=== PATIENT | female | born 1945 | race Caucasian/White ===

== ENCOUNTER → 2023-08-15 12:30 | Outpatient (REF) | payer MEDICARE, SELFPAY | LOC: DHCBC MAIN 12:30 | PROVIDERS: ATTENDING PHYSICIAN Nurse Practitioner; FAMILY PHYSICIAN Internal Medicine Geriatric Medicine | DX: R06.09 Other forms of dyspnea (principal) | CPT/HCPCS: 93306 ==

== ENCOUNTER → 2023-08-26 08:55 | Outpatient (REF) | payer MEDICARE, SELFPAY ==
[2023-08-26 09:17] LABS: Hematocrit 36.4 % (37.0-47.0); Hemoglobin 12.4 g/dL (12.0-16.0); Mean Corp Hgb Conc. 34.1 g/dL (33.0-37.0); Mean Corpuscular Hgb 31.3 pg (27.0-31.0); Mean Corpuscular Volume 91.9 fL (81.0-99.0); Mean Platelet Volume 9.5 fL (7.4-10.4); Platelet Count 249 10^3/uL (130-400); Red Blood Cell Count 3.96 10^6/uL (4.20-5.40); Red Cell Dist. Width 13.2 % (11.5-14.5); White Blood Cell Count 7.6 10^3/uL (4.8-10.8)
[2023-08-26 09:52] LABS: ALT (SGPT) 50 U/L (0-35); AST (SGOT) 58 U/L (14-36); Albumin 3.6 g/dl (3.5-5.0); Alkaline Phosphatase 700 U/L (38-126); Blood Urea Nitrogen 26 mg/dl (7-17); Calcium 9.6 mg/dl (8.4-10.2); Carbon Dioxide 22 mmol/L (22-30); Chloride 107 mmol/L (98-107); Glucose 83 mg/dl (70-99); Magnesium 1.9 mg/dl (1.6-2.3); Potassium 4.5 mmol/L (3.5-5.1); Sodium 135 mmol/L (135-145); Total Bilirubin 0.6 mg/dl (0.2-1.3); Total Protein 6.3 g/dl (6.3-8.2); eGFR 35.23
== END ==
LOC: OLABWHC 08:55
PROVIDERS: ATTENDING PHYSICIAN Internal Medicine
DX: N39.0 Urinary tract infection, site not specified (principal); I63.9 Cerebral infarction, unspecified; E78.5 Hyperlipidemia, unspecified
CPT/HCPCS: 36415; 80053; 83735; 85027

== ENCOUNTER → 2023-08-29 09:57 | Outpatient (REF) | payer OTHER, MEDICARE, SELFPAY ==
[2023-08-29 10:27] LABS: Blood Urea Nitrogen 30 mg/dl (7-17); Calcium 9.3 mg/dl (8.4-10.2); Carbon Dioxide 21 mmol/L (22-30); Chloride 109 mmol/L (98-107); Glucose 95 mg/dl (70-99); Potassium 4.3 mmol/L (3.5-5.1); Sodium 136 mmol/L (135-145); eGFR 57.31
== END ==
LOC: OLABWHC 09:57
PROVIDERS: ATTENDING PHYSICIAN Internal Medicine
DX: N39.0 Urinary tract infection, site not specified (principal); G62.9 Polyneuropathy, unspecified; I63.9 Cerebral infarction, unspecified
CPT/HCPCS: 36415; 80048; 83735

== ENCOUNTER → 2023-09-14 13:16 | Outpatient (REF) | payer MEDICARE, SELFPAY | LOC: RAD 13:16 | PROVIDERS: ATTENDING PHYSICIAN Nurse Practitioner Family | DX: Z09 Encounter for follow-up examination after completed treatment for conditions other than malignant neoplasm (principal); S22.41XS Multiple fractures of ribs, right side, sequela | CPT/HCPCS: 71101 ==

== ENCOUNTER → 2023-09-23 18:25 | Outpatient (REF) | payer MEDICARE, SELFPAY | LOC: MRI 18:25 | PROVIDERS: ATTENDING PHYSICIAN Internal Medicine Transplant Hepatology; FAMILY PHYSICIAN Internal Medicine Geriatric Medicine; REFERRING PHYSICIAN Internal Medicine Gastroenterology | DX: K76.9 Liver disease, unspecified (principal) | CPT/HCPCS: 74183; A9575 ==

== ENCOUNTER → 2023-10-05 15:59 | Outpatient (REF) | payer MEDICARE, SELFPAY | LOC: RAD 15:59 | PROVIDERS: ATTENDING PHYSICIAN Nurse Practitioner Family; FAMILY PHYSICIAN Internal Medicine Geriatric Medicine | DX: Q75.9 Congenital malformation of skull and face bones, unspecified (principal) | CPT/HCPCS: 70260 ==

== ENCOUNTER → 2023-10-19 12:26 | Outpatient (REF) | payer MEDICARE, SELFPAY | LOC: DHVS 12:26 | PROVIDERS: ATTENDING PHYSICIAN Surgery Vascular Surgery | DX: I74.8 Embolism and thrombosis of other arteries (principal); I73.9 Peripheral vascular disease, unspecified | CPT/HCPCS: 93922 ==

== ENCOUNTER → 2023-11-03 11:43 | Outpatient (REF) | payer MEDICARE, SELFPAY ==
[2023-11-03 13:05] LABS: INR 0.97; PT 12.8 Sec (11.4-14.6)
[2023-11-03 13:06] LABS: APTT 28.2 Sec (23.4-35.0)
[2023-11-03 13:10] LABS: % Basophils 0.6 % (0-2); % Eosinophils 8.7 % (0-6); % Immature Granulocytes 0.3 % (0-0.5); % Lymphocytes 29.6 % (20.5-51.1); % Monocytes 6.9 % (1.7-9.3); % Neutrophils 53.9 % (42.2-75.2); Absolute Eosinophils 0.6 10^3/uL (0-0.7); Absolute Lymphocytes 1.9 10^3/uL (1.2-3.4); Absolute Monocytes 0.5 10^3/uL (0.1-0.6); Absolute Neutrophils 3.5 10^3/uL (1.4-6.5); Hemoglobin 12.3 g/dL (12.0-16.0); Mean Corp Hgb Conc. 33.2 g/dL (33.0-37.0); Mean Corpuscular Hgb 30.7 pg (27.0-31.0); Mean Corpuscular Volume 92.3 fL (81.0-99.0); Mean Platelet Volume 8.6 fL (7.4-10.4); Nucleated Red Blood Cells % 0 %; Platelet Count 191 10^3/uL (130-400); Red Blood Cell Count 4.01 10^6/uL (4.20-5.40); Red Cell Dist. Width 12.3 % (11.5-14.5); White Blood Cell Count 6.5 10^3/uL (4.8-10.8)
[2023-11-03 14:03] LABS: ALT (SGPT) 20 U/L (0-35); AST (SGOT) 35 U/L (14-36); Albumin 3.8 g/dl (3.5-5.0); Alkaline Phosphatase 174 U/L (38-126); Blood Urea Nitrogen 23 mg/dl (7-17); Calcium 9.4 mg/dl (8.4-10.2); Carbon Dioxide 24 mmol/L (22-30); Chloride 108 mmol/L (98-107); Glucose 86 mg/dl (70-99); Potassium 4.4 mmol/L (3.5-5.1); Sodium 139 mmol/L (135-145); Total Bilirubin 0.6 mg/dl (0.2-1.3); Total Protein 6.3 g/dl (6.3-8.2); Urine Albumin Negative (Neg - Trace); Urine Bilirubin Negative (Negative); Urine Character Clear (Clear); Urine Color Yellow; Urine Glucose Negative (Negative); Urine Ketone Negative (Negative); Urine Leukocyte Trace (Negative); Urine Nitrite Negative (Negative); Urine Occult Blood Trace (Negative); Urine Urobilinogen Negative (Neg - 1+); eGFR 56.95
[2023-11-03 14:05] LABS: C-Reactive Protein < 5.00 mg/L (0.0-10.00)
[2023-11-03 14:13] LABS: Urine Squamous Cell 0-2 /LPF (Few)
[2023-11-03 14:14] LABS: Urine Red Blood Cell 0-2 /HPF (0-2); Urine White Cell 0-2 /HPF (0-5)
[2023-11-05 20:55] LABS: ANA, IgG Reflex to HEp-2 Detected (None Detected)
[2023-11-06 02:14] LABS: Beta-2-Glycoprotein I Ab. IgG <10 SGU (<=20); Beta-2-Glycoprotein I Ab. IgM <10 SMU (<=20)
[2023-11-06 06:27] LABS: Myeloperoxidase Antibody 0 AU/mL (0-19); Serine Protease-3, IgG 0 AU/mL (0-19)
[2023-11-06 15:07] LABS: SSA 52 (Ro)(ENA) Ab, IgG 2 AU/mL (0-40); SSA 60 (Ro)(ENA) Ab, IgG 0 AU/mL (0-40); SSB (La)(ENA) Ab, IgG 1 AU/mL (0-40)
[2023-11-07 09:17] LABS: ANA, HEp-2, IgG Detected (<1:80)
[2023-11-07 19:30] LABS: Cardiolipin IgA Antibody <10 APL (<=11); Cardiolipin IgM Antibody <10 MPL (<=12); Cardiolipin Igg Antibody <10 GPL (<=14)
[2023-11-07 21:38] LABS: Albumin 3.77 g/dL (3.75-5.01); Alpha 1 Globulin 0.31 g/dL (0.19-0.46); SPEP IFE Reflex Not Done; Total Protein-Electrophoresis 6.5 g/dL (6.3-8.2)
[2023-11-09 07:33] LABS: ANA Pattern Homogeneous
== END ==
LOC: REG 11:43
PROVIDERS: ATTENDING PHYSICIAN Internal Medicine Rheumatology; FAMILY PHYSICIAN Internal Medicine Geriatric Medicine
DX: D68.59 Other primary thrombophilia (principal); I73.00 Raynaud's syndrome without gangrene; I77.6 Arteritis, unspecified; M19.041 Primary osteoarthritis, right hand; M35.9 Systemic involvement of connective tissue, unspecified; Z51.81 Encounter for therapeutic drug level monitoring
CPT/HCPCS: 36415; 80053; 81003; 81015; 83516; 84155; 84165; 85025; 85610; 85730; 86038; 86039; 86140; 86146; 86147; 86235

== ENCOUNTER → 2023-11-29 14:03 | Outpatient (REF) | payer MEDICARE, SELFPAY ==
[2023-11-29 15:17] LABS: % Basophils 0.9 % (0-2); % Eosinophils 8.3 % (0-6); % Immature Granulocytes 0.1 % (0-0.5); % Lymphocytes 30.1 % (20.5-51.1); % Monocytes 6.7 % (1.7-9.3); % Neutrophils 53.9 % (42.2-75.2); Absolute Basophils 0.1 10^3/uL (0-0.2); Absolute Eosinophils 0.6 10^3/uL (0-0.7); Absolute Lymphocytes 2.2 10^3/uL (1.2-3.4); Absolute Monocytes 0.5 10^3/uL (0.1-0.6); Hematocrit 40.1 % (37.0-47.0); Hemoglobin 13.3 g/dL (12.0-16.0); Mean Corp Hgb Conc. 33.2 g/dL (33.0-37.0); Mean Corpuscular Hgb 30.7 pg (27.0-31.0); Mean Corpuscular Volume 92.6 fL (81.0-99.0); Mean Platelet Volume 9.3 fL (7.4-10.4); Nucleated Red Blood Cells % 0 %; Platelet Count 179 10^3/uL (130-400); Red Blood Cell Count 4.33 10^6/uL (4.20-5.40); White Blood Cell Count 7.4 10^3/uL (4.8-10.8)
[2023-11-29 15:38] LABS: ALT (SGPT) 18 U/L (0-35); AST (SGOT) 31 U/L (14-36); Albumin 4.1 g/dl (3.5-5.0); Alkaline Phosphatase 162 U/L (38-126); Blood Urea Nitrogen 26 mg/dl (7-17); Calcium 10.3 mg/dl (8.4-10.2); Carbon Dioxide 24 mmol/L (22-30); Chloride 104 mmol/L (98-107); Glucose 92 mg/dl (70-99); HDL Cholesterol 63 mg/dl; LDL Cholesterol, Calculated 97 mg/dl; Potassium 4.1 mmol/L (3.5-5.1); Sodium 137 mmol/L (135-145); Total Bilirubin 0.6 mg/dl (0.2-1.3); Total Cholesterol 182 mg/dl (50-199); Total Protein 6.7 g/dl (6.3-8.2); Triglyceride 114 mg/dl (10-149); Very Low Density Lipoprotein 22 mg/dl (0-30); eGFR 41.57
== END ==
LOC: REG 14:03
PROVIDERS: ATTENDING PHYSICIAN Internal Medicine Geriatric Medicine
DX: I10 Essential (primary) hypertension (principal); E78.2 Mixed hyperlipidemia; I95.1 Orthostatic hypotension; I06.8 Other rheumatic aortic valve diseases; M41.9 Scoliosis, unspecified; Z91.81 History of falling; G62.9 Polyneuropathy, unspecified; R26.89 Other abnormalities of gait and mobility; E55.9 Vitamin D deficiency, unspecified; Z13.31 Encounter for screening for depression
CPT/HCPCS: 36415; 80053; 80061; 85025

== ENCOUNTER → 2023-12-01 09:22 | Outpatient (REF) | payer MEDICARE, SELFPAY ==
[2023-12-01 12:32] LABS: Complement C3 113 mg/dl (88-165)
[2023-12-01 12:47] LABS: Protein/creatinine Ratio 0.2; Urine Protein 9 mg/dl
[2023-12-02 17:20] LABS: ds-DNA Ab, IgG Reflex To Titer 8 IU (0-24)
[2023-12-02 23:58] LABS: Anti-Xa Qualitative Interp Not Performed (Not Present); Anticoagulant Med Neutralizati Not Performed (Not Performed); Hexagonal Phospholipid Confirm Not Performed s (<=7.9); Neutralized PTT-LA Ratio Not Performed (<=1.20); Neutralized dRVTT Screen Ratio Not Performed (<=1.20); PTT-LA Ratio 0.91 (<=1.20); Prothrombin Time 12.3 s (12.0-15.5); Thrombin Time Not Performed s (<=19.5); dRVTT 1.1 Mix Ratio Not Performed (<=1.20); dRVTT Confirmation Ratio Not Performed (<=1.20)
[2023-12-03 08:24] LABS: Centromere Antibody 0 AU/mL (0-40); Scleroderma Antibody (Scl-70) 1 AU/mL (0-40)
[2023-12-03 19:43] LABS: Smith/RNP (ENA), IgG 4 Units (0-19)
== END ==
LOC: RAD 09:22
PROVIDERS: ATTENDING PHYSICIAN Internal Medicine Rheumatology; FAMILY PHYSICIAN Internal Medicine Geriatric Medicine
DX: R06.02 Shortness of breath (principal); D68.59 Other primary thrombophilia; G62.9 Polyneuropathy, unspecified; I73.00 Raynaud's syndrome without gangrene; I77.6 Arteritis, unspecified; M35.9 Systemic involvement of connective tissue, unspecified; R21 Rash and other nonspecific skin eruption; Z51.81 Encounter for therapeutic drug level monitoring
CPT/HCPCS: 36415; 71046; 82570; 83516; 84156; 85610; 85613; 85730; 86160; 86225; 86235

== ENCOUNTER → 2024-02-02 11:34 | Outpatient (REF) | payer MEDICARE, SELFPAY ==
[2024-02-02 12:25] LABS: % Basophils 0.7 % (0-2); % Eosinophils 7.7 % (0-6); % Immature Granulocytes 0.1 % (0-0.5); % Lymphocytes 27.4 % (20.5-51.1); % Monocytes 6.4 % (1.7-9.3); % Neutrophils 57.7 % (42.2-75.2); Absolute Basophils 0.1 10^3/uL (0-0.2); Absolute Eosinophils 0.6 10^3/uL (0-0.7); Absolute Lymphocytes 2.1 10^3/uL (1.2-3.4); Absolute Monocytes 0.5 10^3/uL (0.1-0.6); Absolute Neutrophils 4.4 10^3/uL (1.4-6.5); Hematocrit 39.4 % (37.0-47.0); Hemoglobin 13.3 g/dL (12.0-16.0); Mean Corp Hgb Conc. 33.8 g/dL (33.0-37.0); Mean Corpuscular Hgb 30.4 pg (27.0-31.0); Mean Corpuscular Volume 90.2 fL (81.0-99.0); Nucleated Red Blood Cells % 0 %; Platelet Count 188 10^3/uL (130-400); Red Blood Cell Count 4.37 10^6/uL (4.20-5.40); Red Cell Dist. Width 12.7 % (11.5-14.5); White Blood Cell Count 7.7 10^3/uL (4.8-10.8)
[2024-02-02 13:01] LABS: ALT (SGPT) 27 U/L (0-35); AST (SGOT) 34 U/L (14-36); Alkaline Phosphatase 220 U/L (38-126); Blood Urea Nitrogen 24 mg/dl (7-17); Calcium 9.8 mg/dl (8.4-10.2); Carbon Dioxide 25 mmol/L (22-30); Chloride 108 mmol/L (98-107); Glucose 88 mg/dl (70-99); HDL Cholesterol 56 mg/dl; LDL Cholesterol, Calculated 112 mg/dl; Potassium 4.4 mmol/L (3.5-5.1); Sodium 140 mmol/L (135-145); Total Bilirubin 0.6 mg/dl (0.2-1.3); Total Cholesterol 187 mg/dl (50-199); Total Protein 6.6 g/dl (6.3-8.2); Triglyceride 95 mg/dl (10-149); Very Low Density Lipoprotein 19 mg/dl (0-30)
== END ==
LOC: REG 11:34
PROVIDERS: ATTENDING PHYSICIAN Internal Medicine Geriatric Medicine
DX: Z91.81 History of falling (principal); I10 Essential (primary) hypertension; E78.2 Mixed hyperlipidemia; I95.1 Orthostatic hypotension; I06.8 Other rheumatic aortic valve diseases; M41.9 Scoliosis, unspecified; G62.9 Polyneuropathy, unspecified; R26.89 Other abnormalities of gait and mobility; Z99.89 Dependence on other enabling machines and devices; E55.9 Vitamin D deficiency, unspecified; E03.9 Hypothyroidism, unspecified; Z13.31 Encounter for screening for depression; K21.9 Gastro-esophageal reflux disease without esophagitis; I73.9 Peripheral vascular disease, unspecified; H25.11 Age-related nuclear cataract, right eye
CPT/HCPCS: 36415; 80053; 80061; 85025

== ENCOUNTER → 2024-02-07 10:03 | Outpatient (REF) | payer MEDICARE, SELFPAY ==
[2024-02-07 12:00] LABS: Alkaline Phosphatase 172 U/L (38-126)
== END ==
LOC: REG 10:03
PROVIDERS: ATTENDING PHYSICIAN Internal Medicine Geriatric Medicine; OTHER PHYSICIAN Internal Medicine Gastroenterology; REFERRING PHYSICIAN Internal Medicine Transplant Hepatology
DX: R74.8 Abnormal levels of other serum enzymes (principal)
CPT/HCPCS: 36415; 84075

== ENCOUNTER → 2024-02-09 13:21 | Outpatient (REF) | payer MEDICARE, SELFPAY ==
[2024-02-09 16:52] LABS: Alkaline Phosphatase, Total 174 U/L (38-126)
[2024-02-09 20:08] LABS: Alk Phos After Heat 169; Alkaline Phosphatase Percent 97.13
== END ==
LOC: REG 13:21
PROVIDERS: ATTENDING PHYSICIAN Internal Medicine Geriatric Medicine; FAMILY PHYSICIAN Internal Medicine Transplant Hepatology; OTHER PHYSICIAN Internal Medicine Rheumatology; REFERRING PHYSICIAN Internal Medicine Gastroenterology
DX: R74.8 Abnormal levels of other serum enzymes (principal)
CPT/HCPCS: 36415; 84078

== ENCOUNTER → 2024-02-21 13:16 | Outpatient (REF) | payer MEDICARE, SELFPAY ==
[2024-02-21 14:42] LABS: Urine Albumin Negative (Neg - Trace); Urine Bilirubin Negative (Negative); Urine Character Clear (Clear); Urine Color Yellow; Urine Glucose Negative (Negative); Urine Ketone Negative (Negative); Urine Leukocyte Trace (Negative); Urine Nitrite Negative (Negative); Urine Occult Blood Negative (Negative); Urine Specific Gravity 1.005 (<1.030); Urine Urobilinogen Negative (Neg - 1+)
[2024-02-21 15:11] LABS: Urine Bacteria Few (Negative); Urine Red Blood Cell 0-2 /HPF (0-2); Urine Urothelial Cell 0-2 /LPF (FEW); Urine White Cell 0-2 /HPF (0-5)
== END ==
LOC: REG 13:16
PROVIDERS: ATTENDING PHYSICIAN Nurse Practitioner Family; FAMILY PHYSICIAN Internal Medicine Geriatric Medicine
DX: R39.9 Unspecified symptoms and signs involving the genitourinary system (principal)
CPT/HCPCS: 81003; 81015; 87086

== ENCOUNTER → 2024-03-05 09:03 | Outpatient (REF) | payer MEDICARE, SELFPAY | LOC: RAD 09:03 | PROVIDERS: ATTENDING PHYSICIAN Internal Medicine Geriatric Medicine | DX: R74.8 Abnormal levels of other serum enzymes (principal) | CPT/HCPCS: 78306; A9503 ==

== ENCOUNTER → 2024-04-05 06:22 | Day surgery (SDC) | payer MEDICARE, SELFPAY | LOC: GI 06:22 | PROVIDERS: ATTENDING PHYSICIAN Internal Medicine Gastroenterology | DX: D12.0 Benign neoplasm of cecum (principal); D12.2 Benign neoplasm of ascending colon; K57.30 Diverticulosis of large intestine without perforation or abscess without bleeding; K62.1 Rectal polyp; K64.8 Other hemorrhoids; Z86.010 Personal history of colon polyps | CPT/HCPCS: 45385; 45380; 88305 ==

== ENCOUNTER → 2024-04-10 12:09 | Outpatient (REF) | payer MEDICARE, SELFPAY ==
[2024-04-10 14:07] LABS: Urine Albumin Negative (Neg - Trace); Urine Bilirubin Negative (Negative); Urine Character Clear (Clear); Urine Color Yellow; Urine Glucose Negative (Negative); Urine Ketone Negative (Negative); Urine Leukocyte Trace (Negative); Urine Nitrite Negative (Negative); Urine Occult Blood Negative (Negative); Urine Urobilinogen Negative (Neg - 1+)
[2024-04-10 14:29] LABS: Urine Urothelial Cell 0-2 /LPF (FEW)
[2024-04-10 14:30] LABS: Urine Red Blood Cell 0-2 /HPF (0-2); Urine White Cell 0-2 /HPF (0-5)
== END ==
LOC: REG 12:09
PROVIDERS: ATTENDING PHYSICIAN Nurse Practitioner Family; FAMILY PHYSICIAN Internal Medicine Geriatric Medicine
DX: R35.0 Frequency of micturition (principal)
CPT/HCPCS: 36415; 81003; 81015

== ENCOUNTER → 2024-05-18 11:52 | Outpatient (REF) | payer MEDICARE, SELFPAY ==
[2024-05-18 14:05] LABS: C-Reactive Protein < 5.00 mg/L (0.0-10.00)
[2024-05-18 14:21] LABS: Vitamin D, 25-OH*** 74.7 ng/mL (30-80)
== END ==
LOC: REG 11:52
PROVIDERS: ATTENDING PHYSICIAN Internal Medicine Rheumatology; FAMILY PHYSICIAN Internal Medicine Geriatric Medicine
DX: E55.9 Vitamin D deficiency, unspecified (principal); G62.9 Polyneuropathy, unspecified; I73.00 Raynaud's syndrome without gangrene; M35.9 Systemic involvement of connective tissue, unspecified; Z51.81 Encounter for therapeutic drug level monitoring
CPT/HCPCS: 36415; 82306; 83516; 86038; 86140; 86146; 86147; 86235

== ENCOUNTER → 2024-05-23 16:49 | Outpatient (REF) | payer MEDICARE, SELFPAY ==
[2024-05-23 17:30] LABS: % Basophils 0.5 % (0-2); % Eosinophils 5.4 % (0-6); % Immature Granulocytes 0.3 % (0-0.5); % Lymphocytes 26.4 % (20.5-51.1); % Monocytes 5.2 % (1.7-9.3); % Neutrophils 62.2 % (42.2-75.2); Absolute Eosinophils 0.4 10^3/uL (0-0.7); Absolute Lymphocytes 2.1 10^3/uL (1.2-3.4); Absolute Monocytes 0.4 10^3/uL (0.1-0.6); Absolute Neutrophils 4.9 10^3/uL (1.4-6.5); Hematocrit 41.7 % (37.0-47.0); Hemoglobin 14.1 g/dL (12.0-16.0); Mean Corp Hgb Conc. 33.8 g/dL (33.0-37.0); Mean Corpuscular Hgb 30.4 pg (27.0-31.0); Mean Corpuscular Volume 89.9 fL (81.0-99.0); Mean Platelet Volume 8.7 fL (7.4-10.4); Nucleated Red Blood Cells % 0 %; Platelet Count 162 10^3/uL (130-400); Red Blood Cell Count 4.64 10^6/uL (4.20-5.40); Red Cell Dist. Width 12.9 % (11.5-14.5); White Blood Cell Count 7.9 10^3/uL (4.8-10.8)
[2024-05-23 17:40] LABS: ALT (SGPT) 20 U/L (0-35); AST (SGOT) 40 U/L (14-36); Albumin 4.8 g/dl (3.5-5.0); Alkaline Phosphatase 160 U/L (38-126); Blood Urea Nitrogen 24 mg/dl (7-17); Calcium 11.2 mg/dl (8.4-10.2); Carbon Dioxide 27 mmol/L (22-30); Chloride 104 mmol/L (98-107); Glucose 88 mg/dl (70-99); HDL Cholesterol 66 mg/dl; LDL Cholesterol, Calculated 87 mg/dl; Potassium 5.3 mmol/L (3.5-5.1); Sodium 143 mmol/L (135-145); Total Bilirubin 0.8 mg/dl (0.2-1.3); Total Cholesterol 183 mg/dl (50-199); Total Protein 7.5 g/dl (6.3-8.2); Triglyceride 152 mg/dl (10-149); Very Low Density Lipoprotein 30 mg/dl (0-30)
[2024-05-25 11:52] LABS: Thyroglobulin Antibodies <0.9 IU/mL (0.0-4.0); Thyroid Peroxidase Ab (TPO) <0.3 IU/mL (0.0-9.0)
== END ==
LOC: REG 16:49
PROVIDERS: ATTENDING PHYSICIAN Internal Medicine Geriatric Medicine; REFERRING PHYSICIAN Internal Medicine Endocrinology, Diabetes & Metabolism
DX: I10 Essential (primary) hypertension (principal); E78.2 Mixed hyperlipidemia; I95.1 Orthostatic hypotension; I06.8 Other rheumatic aortic valve diseases; G62.9 Polyneuropathy, unspecified; I44.7 Left bundle-branch block, unspecified; E21.0 Primary hyperparathyroidism; M41.9 Scoliosis, unspecified; Z91.81 History of falling; E03.9 Hypothyroidism, unspecified; R26.89 Other abnormalities of gait and mobility; Z13.31 Encounter for screening for depression; I73.9 Peripheral vascular disease, unspecified; G60.9 Hereditary and idiopathic neuropathy, unspecified; R94.5 Abnormal results of liver function studies; R68.89 Other general symptoms and signs
CPT/HCPCS: 36415; 80053; 80061; 84439; 84443; 85025; 86376; 86800

== ENCOUNTER → 2024-06-26 12:48 | Outpatient (REF) | payer MEDICARE, SELFPAY ==
[2024-06-26 15:32] LABS: ALT (SGPT) 24 U/L (0-35); AST (SGOT) 36 U/L (14-36); Albumin 4.2 g/dl (3.5-5.0); Alkaline Phosphatase 165 U/L (38-126); Blood Urea Nitrogen 23 mg/dl (7-17); Carbon Dioxide 23 mmol/L (22-30); Chloride 105 mmol/L (98-107); Glucose 83 mg/dl (70-99); Potassium 4.7 mmol/L (3.5-5.1); Sodium 140 mmol/L (135-145); Total Bilirubin 0.5 mg/dl (0.2-1.3); Total Protein 6.7 g/dl (6.3-8.2); eGFR 45.76
[2024-06-26 15:44] LABS: Vitamin D, 25-OH*** 71.1 ng/mL (30-80)
[2024-06-26 15:58] LABS: TSH 1.28 uIU/ml (0.47-4.68)
[2024-06-27 09:07] LABS: Intact PTH 25.9 pg/ml (13.6-85.8)
== END ==
LOC: WDC 12:48
PROVIDERS: ATTENDING PHYSICIAN Internal Medicine Geriatric Medicine; OTHER PHYSICIAN Internal Medicine Endocrinology, Diabetes & Metabolism
DX: E89.0 Postprocedural hypothyroidism (principal); E83.52 Hypercalcemia; E55.9 Vitamin D deficiency, unspecified; Z12.31 Encounter for screening mammogram for malignant neoplasm of breast
CPT/HCPCS: 36415; 77063; 77067; 80053; 82306; 82330; 83970; 84443

== ENCOUNTER → 2024-08-02 07:50 | Outpatient (REF) | payer MEDICARE, SELFPAY | LOC: RSP 07:50 | PROVIDERS: ATTENDING PHYSICIAN Internal Medicine; FAMILY PHYSICIAN Internal Medicine Geriatric Medicine | DX: R06.02 Shortness of breath (principal) | CPT/HCPCS: 94727; 94729; 88738; 94060 ==

== ENCOUNTER → 2024-08-13 14:37 | Outpatient (REF) | payer MEDICARE, SELFPAY | LOC: HWRCS 14:37 | PROVIDERS: ATTENDING PHYSICIAN Internal Medicine; FAMILY PHYSICIAN Internal Medicine Geriatric Medicine | DX: R06.02 Shortness of breath (principal) | CPT/HCPCS: 93306 ==

== ENCOUNTER → 2024-08-21 10:29 | Outpatient (REF) | payer MEDICARE, SELFPAY | LOC: MRI 3T 10:29 | PROVIDERS: ATTENDING PHYSICIAN Internal Medicine Gastroenterology; FAMILY PHYSICIAN Internal Medicine Geriatric Medicine | DX: K86.2 Cyst of pancreas (principal) | CPT/HCPCS: 74183; A9575 ==

== ENCOUNTER → 2024-09-05 13:30 | Outpatient (REF) | payer MEDICARE, SELFPAY ==
[2024-09-05 14:55] LABS: % Basophils 0.5 % (0-2); % Immature Granulocytes 0.3 % (0-0.5); % Lymphocytes 25.5 % (20.5-51.1); % Neutrophils 58.7 % (42.2-75.2); Absolute Eosinophils 0.5 10^3/uL (0-0.7); Absolute Lymphocytes 1.9 10^3/uL (1.2-3.4); Absolute Monocytes 0.6 10^3/uL (0.1-0.6); Absolute Neutrophils 4.3 10^3/uL (1.4-6.5); Hematocrit 37.9 % (37.0-47.0); Hemoglobin 12.4 g/dL (12.0-16.0); Mean Corp Hgb Conc. 32.7 g/dL (33.0-37.0); Mean Corpuscular Hgb 31.1 pg (27.0-31.0); Nucleated Red Blood Cells % 0 %; Platelet Count 200 10^3/uL (130-400); Red Blood Cell Count 3.99 10^6/uL (4.20-5.40); Red Cell Dist. Width 12.5 % (11.5-14.5); White Blood Cell Count 7.3 10^3/uL (4.8-10.8)
[2024-09-05 15:00] LABS: Urine Albumin 2+ (Neg - Trace); Urine Bilirubin Negative (Negative); Urine Character Clear (Clear); Urine Color Yellow; Urine Glucose Negative (Negative); Urine Ketone Negative (Negative); Urine Leukocyte 2+ (Negative); Urine Nitrite Negative (Negative); Urine Occult Blood Negative (Negative); Urine Urobilinogen Negative (Neg - 1+)
[2024-09-05 15:15] LABS: Urine Red Blood Cell 0-2 /HPF (0-2); Urine Squamous Cell 26-30 /LPF (Few)
[2024-09-05 15:16] LABS: Urine Bacteria Few (Negative)
[2024-09-05 15:46] LABS: ALT (SGPT) 19 U/L (0-35); AST (SGOT) 28 U/L (14-36); Albumin 4.4 g/dl (3.5-5.0); Alkaline Phosphatase 151 U/L (38-126); Blood Urea Nitrogen 23 mg/dl (7-17); Calcium 10.4 mg/dl (8.4-10.2); Carbon Dioxide 24 mmol/L (22-30); Chloride 104 mmol/L (98-107); Glucose 87 mg/dl (70-99); Potassium 4.5 mmol/L (3.5-5.1); Sodium 139 mmol/L (135-145); Total Bilirubin 0.9 mg/dl (0.2-1.3); Total Protein 6.7 g/dl (6.3-8.2); eGFR 50.48
[2024-09-05 16:03] LABS: Vitamin D, 25-OH*** 88.3 ng/mL (30-80)
== END ==
LOC: CLINIC 13:30
PROVIDERS: ATTENDING PHYSICIAN Internal Medicine Geriatric Medicine
DX: I10 Essential (primary) hypertension (principal); E78.2 Mixed hyperlipidemia; I95.1 Orthostatic hypotension; I06.8 Other rheumatic aortic valve diseases; G62.9 Polyneuropathy, unspecified; I44.7 Left bundle-branch block, unspecified; E21.0 Primary hyperparathyroidism; M41.9 Scoliosis, unspecified; Z91.81 History of falling; E03.9 Hypothyroidism, unspecified; R26.89 Other abnormalities of gait and mobility; Z13.31 Encounter for screening for depression; I73.9 Peripheral vascular disease, unspecified; G60.9 Hereditary and idiopathic neuropathy, unspecified; R94.5 Abnormal results of liver function studies
CPT/HCPCS: 36415; 80053; 81003; 81015; 82306; 85025

== ENCOUNTER → 2024-09-06 10:25 | Outpatient (REF) | payer MEDICARE, SELFPAY ==
[2024-09-06 12:13] LABS: ALT (SGPT) 18 U/L (0-35); AST (SGOT) 25 U/L (14-36); Albumin 3.8 g/dl (3.5-5.0); Alkaline Phosphatase 148 U/L (38-126); Direct Bilirubin 0.1 mg/dl (0.0-0.4); HDL Cholesterol 55 mg/dl; LDL Cholesterol, Calculated 82 mg/dl; Total Bilirubin 0.6 mg/dl (0.2-1.3); Total Cholesterol 155 mg/dl (50-199); Total Protein 6.3 g/dl (6.3-8.2); Triglyceride 94 mg/dl (10-149); Very Low Density Lipoprotein 18 mg/dl (0-30)
== END ==
LOC: REG 10:25
PROVIDERS: ATTENDING PHYSICIAN Internal Medicine Gastroenterology; FAMILY PHYSICIAN Internal Medicine Geriatric Medicine; REFERRING PHYSICIAN Internal Medicine Transplant Hepatology
DX: I10 Essential (primary) hypertension (principal); E78.2 Mixed hyperlipidemia; I95.1 Orthostatic hypotension; I06.8 Other rheumatic aortic valve diseases; G62.9 Polyneuropathy, unspecified; I44.7 Left bundle-branch block, unspecified; E21.0 Primary hyperparathyroidism; M41.9 Scoliosis, unspecified; Z91.81 History of falling; E03.9 Hypothyroidism, unspecified; R26.89 Other abnormalities of gait and mobility; Z13.31 Encounter for screening for depression; I73.9 Peripheral vascular disease, unspecified; G60.9 Hereditary and idiopathic neuropathy, unspecified; R94.5 Abnormal results of liver function studies; D12.5 Benign neoplasm of sigmoid colon
CPT/HCPCS: 36415; 80061; 80076

== ENCOUNTER → 2024-09-17 13:54 | Outpatient (REF) | payer MEDICARE, SELFPAY ==
[2024-09-17 15:24] LABS: Vitamin D, 25-OH*** 81.8 ng/mL (30-80)
== END ==
LOC: REG 13:54
PROVIDERS: ATTENDING PHYSICIAN Internal Medicine Geriatric Medicine; OTHER PHYSICIAN Internal Medicine Endocrinology, Diabetes & Metabolism
DX: E67.3 Hypervitaminosis D (principal)
CPT/HCPCS: 36415; 82306

== ENCOUNTER → 2024-10-31 09:21 | Outpatient (REF) | payer MEDICARE, SELFPAY ==
[2024-10-31 11:48] LABS: Vitamin D, 25-OH*** 89.5 ng/mL (30-80)
== END ==
LOC: RAD 09:21
PROVIDERS: ATTENDING PHYSICIAN Surgery Vascular Surgery; FAMILY PHYSICIAN Internal Medicine Geriatric Medicine; OTHER PHYSICIAN Internal Medicine Gastroenterology; OTHER PHYSICIAN Internal Medicine Transplant Hepatology; REFERRING PHYSICIAN Internal Medicine Endocrinology, Diabetes & Metabolism
DX: I73.9 Peripheral vascular disease, unspecified (principal); E67.3 Hypervitaminosis D
CPT/HCPCS: 36415; 82306; 93922; 93925

== ENCOUNTER → 2025-01-09 10:49 | Outpatient (REF) | payer MEDICARE, SELFPAY ==
[2025-01-09 12:29] LABS: GGTP 35 U/L (12-43)
[2025-01-09 13:13] LABS: TSH < 0.02 uIU/ml (0.47-4.68)
== END ==
LOC: REG 10:49
PROVIDERS: ATTENDING PHYSICIAN Internal Medicine Gastroenterology; FAMILY PHYSICIAN Internal Medicine Geriatric Medicine; OTHER PHYSICIAN Internal Medicine; OTHER PHYSICIAN Internal Medicine Endocrinology, Diabetes & Metabolism; REFERRING PHYSICIAN Internal Medicine Transplant Hepatology
DX: R94.5 Abnormal results of liver function studies (principal); R79.89 Other specified abnormal findings of blood chemistry; R74.01 Elevation of levels of liver transaminase levels; E89.0 Postprocedural hypothyroidism
CPT/HCPCS: 36415; 82248; 82977; 84443

== ENCOUNTER 2025-01-23 06:47 | Inpatient (IN) | payer MEDICARE, SELFPAY ==
--- NOTE | 2024-12-19 11:06 | CM ---
Addendum entered by Sienna Shepard RN 01/22/25 15:49:
CM spoke with patient who requested surgical time. CM advised patient that she will receive a text after 12pm today with arrival time.
CM was updated by Buck at [facility] that they are unable to assist patient to MANAGER PHP through her insurance. Patient stated that she understood and she has a friend Blanca who will be available to assist her.
Addendum entered by Sienna Shepard RN 01/22/25 11:31:
CM spoke with Renetta from [facility] and she advised that they are unable to assist with MANAGER PHP staffing. CM spoke with [facility]. Kina is running patient's insurance for possible staffing and MANAGER PHP assistance.
Addendum entered by Sienna Shepard RN 01/10/25 15:39:
CM requested update on insurance authorization for MANAGER PHP from Renetta at [facility]. Awaiting return call.
CM left message for patient to update.
Addendum entered by Sienna Shepard RN 01/09/25 15:41:
CM spoke with patient who stated that her [employer] will pay for up to 28 hours of MANAGER PHP care. CM spoke with [facility] and they stated that they would provide up to 8 hours of care/day up to 35 hours. HOSSEIN spoke with Renetta
at [facility] who advised CM call [facility] Private Duty Office [phone]. CM spoke with Private Duty and they stated that [facility] does not cover MANAGER PHP services.
HOSSEIN spoke with Renetta who requested that patient's face sheet and insurance be faxed to her. The private duty office will submit through patient's insurance to check for coverage. CM will await call back.
Original Note:
Cm reviewed medical records. Patient lives independently in a single floor apartment. Patient has had a history of VN with [facility]. Patient has been to [facility]. Patient has a cane, rollator, walker and raised toilet set. Patient is active with her PCP.
Patient will plan for outpatient PT on 01/25 if she does not get home care.
Patient would prefer [facility], but is requesting [facility] for two week post operatively because she does not have reliable transportation. SHe does have friends available to provide transportation to surgery and post operatively.
PLAN: Home with [facility], or outpatient PT
--- NOTE | 2025-01-04 13:18 | W.PN.UPDATE ---
Update Note
Progress Note Update
At the request of the patient, she was provided with a paper script for nasal Mupirocin pre-operatively.
[2025-01-04 14:21] VITALS: BMI 24.5
[2025-01-04 14:38] LABS: Hematocrit 37.4 % (37.0-47.0); Hemoglobin 12.9 g/dL (12.0-16.0); Mean Corp Hgb Conc. 34.5 g/dL (33.0-37.0); Mean Corpuscular Volume 89.7 fL (81.0-99.0); Platelet Count 190 10^3/uL (130-400); Red Cell Dist. Width 12.3 % (11.5-14.5)
[2025-01-04 15:27] LABS: ALT (SGPT) 22 U/L (0-35); AST (SGOT) 33 U/L (14-36); Albumin 4.0 g/dl (3.5-5.0); Alkaline Phosphatase 140 U/L (38-126); Blood Urea Nitrogen 25 mg/dl (7-17); Calcium 9.5 mg/dl (8.4-10.2); Carbon Dioxide 21 mmol/L (22-30); Chloride 112 mmol/L (98-107); Estimated Creatinine Clearance 28 ml/min; Glucose 79 mg/dl (70-99); Potassium 4.8 mmol/L (3.5-5.1); Sodium 139 mmol/L (135-145); Total Protein 6.3 g/dl (6.3-8.2); eGFR 41.31
[2025-01-04 16:05] VITALS: BMI 24.5
[2025-01-05 08:14] LABS: Glycohemoglobin (HgbA1c) 5.2 % (4.0-5.6)
[2025-01-16 03:00] VITALS: BP 118/65
[2025-01-23] VITALS (19 sets, daily range): BP systolic 93–188; BP diastolic 30–110; PULSE 84–100; O2SAT 97
[2025-01-23] MEDS: TYLENOL 650 MG PO ×4 (07:30→20:45)
[2025-01-23] MEDS: NORMOSOL-R/PLASMALYTE-A 1000 IV ×2 (07:53→14:07)
--- NOTE | 2025-01-23 10:47 | W.PN.ORTHO ---
Today's Communication / Plan
-
d/c when stable
Assessment
.
Dressing:
Clean, dry and intact.
Assessment:
Dysphagia-aspiration precautions-applesauce w/ pills
Hx CVA/ambulatory dysfunction-fall precautions
Chronic constipation-+ MOM to bowel regimen at home
Plan
.
Surgery / Date: R SHAYLA Carias 01/23/25
DVT Prophylaxis: Aspirin
Activity:
Out of bed.
PT/OT
Discharge Plan: Home w/ VN
Vital Signs and Labs
.
Vital Signs and Labs:
Lab Results
01/04/25 12:38
01/04/25 12:38
Temp Pulse Resp BP Pulse Ox
98.3 F 77 11 130/63 98
01/23/25 09:50 01/23/25 10:30 01/23/25 10:30 01/23/25 10:30 01/23/25 10:43
--- NOTE | 2025-01-23 11:35 | PTCARENOTE ---
Pt received from the PACU via bed. Transport was w/o incident. Pt is AAOx3, HRR w/ noted murmur, NSR w/ BBC on monitor, HR 80's. VSS, Pt is afebrile. Pt's Right HIp with Primaseal dressing C/D/I, no drainage noted at this time. Pt reports pain at
mild to moderate to right hip, will medicate for pain as ordered. Pt denies nausea. Pt instructed on plan of care. Pt verbalized understanding of instructions. Call [facility] is within reach.
--- NOTE | 2025-01-23 12:21 | W.DS.TRANS ---
DC Summary - Farm Owner Operator
-
Discharge Instructions:
Sleep Apnea Risk Low
Discharge Diagnosis/Procedures R SHAYLA Dr. Carias 01/23/25
Diet Other diet
Additional Diets asprevious-dysphagia
Activity With assistance,With Walker
Driving Restrictions No driving
Bathing Restrictions OK to Shower
Other Services VN,PT,OT
Instructions:
Stand-Alone Forms: Total Hip/Knee Replacement D/C
Changes to Home Medications: Yes
Discharge Medications:
DC Medications w/original date entered in [employer]
fluticasone propionate 50 mcg/actuation nasal spray,suspension 1 spray intranasal HS Congestion 05/21/20
Calcium + Bone Strength 1 gum PO DAILY@0900 01/03/25
albuterol 90 mcg-budesonide 80 mcg/actuation HFA aerosol inhaler 2 inh inhalation ONCE PRN sob 01/03/25
atorvastatin 80 mg tablet 80 mg PO HS@219901/03/25
budesonide-formoterol HFA 160 mcg-4.5 mcg/actuation aerosol inhaler (Breyna) 2 puff inhalation BID@0700,1800 01/03/25
clopidogrel 75 mg tablet 75 mg PO DAILY 01/03/25
epinephrine 0.3 mg/0.3 mL injection, auto-injector 0.3 mg IM ONCE PRN allergic reaction 01/03/25
fexofenadine 180 mg tablet 180 mg PO BID@0700,0 01/03/25
ipratropium bromide 21 mcg (0.03 %) nasal spray 2 spray intranasal DAILYPRN PRN runny nose 01/03/25
levothyroxine 100 mcg tablet 88 mcg PO DAILY@0701/03/25
midodrine 10 mg tablet 10 mg PO TID 01/03/25
polyethylene glycol 3350 17 gram oral powder packet (Miralax) 17 g PO DAILY 01/03/25
psyllium 1 packet PO DAILYPRN PRN constipation 01/03/25
ursodiol 300 mg capsule 300 mg PO TID@0900,1300,1800 01/03/25
mupirocin 2 % topical ointment 1 applic intranasal BID #1 tube 01/04/25
ondansetron 4 mg disintegrating tablet 4 mg PO Q6H PRN nausea and vomiting #30 tabs 01/17/25
oxycodone 5 mg tablet 5 - 10 mg (1 - 2 x 5 mg) PO Q6H PRN moderate-severe pain #30 tabs 01/17/25
pantoprazole 40 mg tablet,delayed release (Protonix) 40 mg PO DAILY #30 tabs 01/17/25
aspirin 325 mg tablet 325 mg PO DAILY blood clot prevention #1 tab 01/23/25
docusate sodium 100 mg capsule (Colace) 100 mg PO BID stool softner #1 cap 01/23/25
gabapentin 100 mg capsule 300 mg (3 x 100 mg) PO HS #0 caps 01/23/25
magnesium hydroxide 400 mg/5 mL oral suspension (Milk of Magnesia) 30 ml PO HS PRN constipation #1 mL 01/23/25
sennosides 8.6 mg tablet (Senokot) 17.2 mg (2 x 8.6 mg) PO BID laxative #2 tabs 01/23/25
Home Medication Changes
mupirocin 2 % topical ointment 1 applic intranasal BID #1 tube 01/04/25
ondansetron 4 mg disintegrating tablet 4 mg PO Q6H PRN nausea and vomiting #30 tabs 01/17/25
oxycodone 5 mg tablet 5 - 10 mg (1 - 2 x 5 mg) PO Q6H PRN moderate-severe pain #30 tabs 01/17/25
pantoprazole 40 mg tablet,delayed release (Protonix) 40 mg PO DAILY #30 tabs 01/17/25
aspirin 325 mg tablet 325 mg PO DAILY blood clot prevention #1 tab 01/23/25
docusate sodium 100 mg capsule (Colace) 100 mg PO BID stool softner #1 cap 01/23/25
gabapentin 100 mg capsule 300 mg (3 x 100 mg) PO HS #0 caps 01/23/25
magnesium hydroxide 400 mg/5 mL oral suspension (Milk of Magnesia) 30 ml PO HS PRN constipation #1 mL 01/23/25
sennosides 8.6 mg tablet (Senokot) 17.2 mg (2 x 8.6 mg) PO BID laxative #2 tabs 01/23/25
Pending Results: No
[2025-01-23] MEDS: ROXICODONE 10 MG PO (12:48)
[2025-01-23] MEDS: ZOFRAN ODT (ORALLY DISINTEGRATING) 4 MG PO ×2 (12:48→19:03)
[2025-01-23] MEDS: ACTIGALL 300 MG PO ×2 (12:48→18:36)
[2025-01-23] MEDS: COMPAZINE 5 MG PO ×2 (14:07→21:25)
[2025-01-23] MEDS: NORMOSOL-R/PLASMALYTE-A IV (14:55)
--- NOTE | 2025-01-23 15:45 | W.PN.UPDATE ---
Update Note
Progress Note Update
presyncope with diaphoresis and nausea--check troponins and EKG to exclude cardiac vs. vasovagal/orthostasis
[2025-01-23 16:39] LABS: Troponin I < 0.012 ng/ml
[2025-01-23] MEDS: SYMBICORT 160/4.5 MCG INHALER 2 PUFF INH (18:18)
[2025-01-23] MEDS: ASPIRIN 325 MG PO (18:29)
--- NOTE | 2025-01-23 20:08 | PTCARENOTE ---
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
[2025-01-23] MEDS: ANCEF IV (20:41)
[2025-01-23] MEDS: BACTROBAN 2% OINTMENT NASAL (20:41)
[2025-01-23] MEDS: COLACE PO (20:42)
[2025-01-23] MEDS: LYRICA 75 MG PO (20:45)
[2025-01-23] MEDS: ZOFRAN ODT (ORALLY DISINTEGRATING) PO (21:14)
[2025-01-23] MEDS: ATIVAN 0.5 MG PO (21:26)
[2025-01-23 22:38] LABS: Troponin I < 0.012 ng/ml
[2025-01-23] MEDS: TYLENOL PO (23:20)
[2025-01-24] VITALS (7 sets, daily range): BP systolic 90–144; BP diastolic 59–86; PULSE 93; O2SAT 99
[2025-01-24] MEDS: TYLENOL 650 MG PO ×3 (00:29→09:24)
[2025-01-24] MEDS: SYNTHROID 88 MCG PO (06:29)
--- NOTE | 2025-01-24 07:47 | CM ---
Addendum entered by Sienna Shepard RN 01/24/25 13:30:
CM was updated that patient was COVID positive. CM confirmed that [facility] is able to accept.
Addendum entered by Sienna Shepard RN 01/24/25 12:26:
CM confirmed that [facility] authorization has been sent to admission coordinator at [facility]. Luna confirmed receipt of authorization.
Addendum entered by Sienna Shepard RN 01/24/25 11:33:
[facility]
Report
[phone]

Addendum entered by Sienna Shepard RN 01/24/25 11:19:
CM spoke with patient and she was agreeable to [facility] discharge. CM is awaiting final discharge plan. CM updated Wendy at [facility] with plan for discharge.
Addendum entered by Sienna Shepard RN 01/24/25 10:01:
Patient has been accepted to [facility]. CM is awaiting final discharge decision.
Original Note:
CM reviewed medical records. Pt has recommended SNF. CM sent referral via [facility] to [facility]. CM received update that [facility]
PLAN: SNF
[2025-01-24] MEDS: TRANSDERM-SCOP 1 PATCH TRANSDERM (08:03)
[2025-01-24] MEDS: SYMBICORT 160/4.5 MCG INHALER 2 PUFF INH (08:05)
[2025-01-24] MEDS: ASPIRIN 325 MG PO (09:19)
[2025-01-24] MEDS: BACTROBAN 2% OINTMENT 1 APPLIC NASAL (09:20)
[2025-01-24] MEDS: COLACE 100 MG PO (09:22)
[2025-01-24] MEDS: LYRICA 75 MG PO (09:23)
[2025-01-24] MEDS: ZOFRAN ODT (ORALLY DISINTEGRATING) 4 MG PO (09:24)
[2025-01-24] MEDS: ROXICODONE 2.5 MG PO (09:34)
[2025-01-24] MEDS: ACTIGALL 300 MG PO ×2 (09:35→15:14)
[2025-01-24] MEDS: ANCEF 5 IV (09:42)
--- NOTE | 2025-01-24 11:25 | W.PN.ORTHO ---
Today's Communication / Plan
-
d/c SNF-patient requiring additional rehab needs prior to returning home at a mod I level
Assessment
.
Distal Motor Intact: Yes
Dressing:
Clean, dry and intact.
Assessment:
Pre-syncope 01/23/25 w/ PT-no elevation in troponin x2--EKG at baseline-likely vasovagal-resolved POD#1
Dysphagia-aspiration precautions-applesauce w/ pills
Hx CVA/ambulatory dysfunction-fall precautions
Chronic constipation-+ MOM to bowel regimen at home
Plan
.
Surgery / Date: R SHAYLA Carias 01/23/25
DVT Prophylaxis: Aspirin
Activity:
Out of bed.
PT/OT
Discharge Plan: SNF
Subjective
.
.:
Patient resting comfortably.
Vital Signs and Labs
.
Vital Signs and Labs:
Lab Results
01/04/25 12:38
01/04/25 12:38
Temp Pulse Resp BP Pulse Ox
98.5 F 86 16 131/86 97
01/24/25 07:05 01/24/25 08:16 01/24/25 08:16 01/24/25 07:05 01/24/25 08:16
Non-invasive Hgb result: 13.2
Physical Exam
-
HEENT: No pallor, cyanosis, or jaundice. Throat clear.
NECK: Supple. No JVD.
RESPIRATORY: Lungs clear to auscultation.
CVS: S1, S2 normal. RRR.� No murmur, rub or gallop.
ABDOMEN: Soft, non-tender. No distension. BS+/normal.
EXTREMITIES: strength equal, no calf pain with palpation
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
[2025-01-24] MEDS: ZOFRAN ODT (ORALLY DISINTEGRATING) PO (12:28)
[2025-01-24] MEDS: TYLENOL PO ×2 (12:28→15:31)
[2025-01-24 13:15] LABS: COVID-19 Antigen Positive (Negative)
== END 2025-01-24 17:45 | DRG 470 ==
LOC: 2 SOUTH 06:47
PROVIDERS: Physician Assistant Medical; ADMITTING PHYSICIAN Orthopaedic Surgery; FAMILY PHYSICIAN Internal Medicine Geriatric Medicine; REFERRING PHYSICIAN Internal Medicine
PROC: 0SR904A Replacement of Right Hip Joint with Ceramic on Polyethylene Synthetic Substitute, Uncemented, Open Approach (ICD-10-PCS; 2025-01-23)
DX: M16.11 Unilateral primary osteoarthritis, right hip (principal); I95.1 Orthostatic hypotension; I25.10 Atherosclerotic heart disease of native coronary artery without angina pectoris; I44.7 Left bundle-branch block, unspecified; I35.8 Other nonrheumatic aortic valve disorders; I73.00 Raynaud's syndrome without gangrene; J44.89 Other specified chronic obstructive pulmonary disease; N18.30 Chronic kidney disease, stage 3 unspecified; K21.9 Gastro-esophageal reflux disease without esophagitis; K44.9 Diaphragmatic hernia without obstruction or gangrene; R13.10 Dysphagia, unspecified; K76.0 Fatty (change of) liver, not elsewhere classified; R74.01 Elevation of levels of liver transaminase levels; K59.09 Other constipation; G62.9 Polyneuropathy, unspecified; E05.00 Thyrotoxicosis with diffuse goiter without thyrotoxic crisis or storm; E03.9 Hypothyroidism, unspecified; F41.9 Anxiety disorder, unspecified; G47.00 Insomnia, unspecified; M81.0 Age-related osteoporosis without current pathological fracture; I70.0 Atherosclerosis of aorta; H54.62 Unqualified visual loss, left eye, normal vision right eye; R26.89 Other abnormalities of gait and mobility; I69.398 Other sequelae of cerebral infarction; Z60.2 Problems related to living alone; Z96.651 Presence of right artificial knee joint; Z86.0100 Personal history of colon polyps, unspecified; Z87.442 Personal history of urinary calculi; Z91.81 History of falling; Z79.890 Hormone replacement therapy; Z79.02 Long term (current) use of antithrombotics/antiplatelets; Z59.82 Transportation insecurity
CPT/HCPCS: 36415; 73502; 80053; 83036; 84484; 85027; 87070; 87811; 93005; 94640; 97110; 97116; 97163; 97167; 97530; 97535; C1776

== ENCOUNTER → 2025-02-12 15:51 | Outpatient (REF) | payer MEDICARE, SELFPAY ==
[2025-02-12 16:34] LABS: Albumin 3.8 g/dl (3.5-5.0); Total Protein 6.2 g/dl (6.3-8.2)
[2025-02-12 16:41] LABS: ALT (SGPT) 16 U/L (0-35); AST (SGOT) 25 U/L (14-36); Alkaline Phosphatase 167 U/L (38-126)
[2025-02-12 16:51] LABS: Free T3 3.06 pg/ml (2.77-5.27)
[2025-02-12 17:05] LABS: TSH 0.12 uIU/ml (0.47-4.68)
[2025-02-15 06:46] LABS: Thyroid Stim. Immunoglobulin <0.10 IU/L (<=0.54)
== END ==
LOC: CLAB 15:51
PROVIDERS: ATTENDING PHYSICIAN Internal Medicine Geriatric Medicine
DX: E89.0 Postprocedural hypothyroidism (principal); E03.9 Hypothyroidism, unspecified; E05.90 Thyrotoxicosis, unspecified without thyrotoxic crisis or storm; K76.0 Fatty (change of) liver, not elsewhere classified
CPT/HCPCS: 36415; 80076; 84439; 84443; 84445; 84481

== ENCOUNTER 2025-03-18 09:51 | Outpatient (RCR) | payer MEDICARE, SELFPAY | END 2025-03-28 11:05 | disposition home or self-care (01) | LOC: RST 09:51 | PROVIDERS: ATTENDING PHYSICIAN Internal Medicine Critical Care Medicine | DX: R13.10 Dysphagia, unspecified (principal) | CPT/HCPCS: 92526; 92610 ==

== ENCOUNTER → 2025-04-09 10:07 | Outpatient (REF) | payer MEDICARE, SELFPAY ==
[2025-04-09 11:44] LABS: Free T3 3.42 pg/ml (2.77-5.27)
[2025-04-09 11:57] LABS: TSH 1.52 uIU/ml (0.47-4.68)
[2025-04-11 15:12] LABS: Thyroid Stim. Immunoglobulin <0.10 IU/L (<=0.54)
== END ==
LOC: REG 10:07
PROVIDERS: ATTENDING PHYSICIAN Internal Medicine Endocrinology, Diabetes & Metabolism; FAMILY PHYSICIAN Internal Medicine Geriatric Medicine
DX: E89.0 Postprocedural hypothyroidism (principal)
CPT/HCPCS: 36415; 84439; 84443; 84445; 84481

== ENCOUNTER 2025-04-09 15:11 | Outpatient (RCR) | payer MEDICARE, SELFPAY | END 2025-04-09 23:59 | disposition home or self-care (01) | LOC: RPT 15:11 | PROVIDERS: ATTENDING PHYSICIAN Orthopaedic Surgery; FAMILY PHYSICIAN Internal Medicine Geriatric Medicine | DX: Z47.1 Aftercare following joint replacement surgery (principal); Z73.6 Limitation of activities due to disability; M25.551 Pain in right hip; M62.81 Muscle weakness (generalized); Z96.641 Presence of right artificial hip joint | CPT/HCPCS: 97010; 97110; 97112; 97162 ==

== ENCOUNTER 2025-04-17 09:35 | Outpatient (RCR) | payer MEDICARE, SELFPAY | END 2025-04-17 13:16 | disposition home or self-care (01) | LOC: RPT 09:35 | PROVIDERS: ATTENDING PHYSICIAN Orthopaedic Surgery; FAMILY PHYSICIAN Internal Medicine Geriatric Medicine | DX: Z47.1 Aftercare following joint replacement surgery (principal); Z73.6 Limitation of activities due to disability; M25.551 Pain in right hip; M62.81 Muscle weakness (generalized); Z96.641 Presence of right artificial hip joint | CPT/HCPCS: 97110; 97112 ==

== ENCOUNTER → 2025-04-24 13:31 | Outpatient (REF) | payer MEDICARE, SELFPAY | LOC: RAD 13:31 | PROVIDERS: ATTENDING PHYSICIAN Nurse Practitioner Family; FAMILY PHYSICIAN Internal Medicine Geriatric Medicine; OTHER PHYSICIAN Internal Medicine Gastroenterology; OTHER PHYSICIAN Internal Medicine Transplant Hepatology | DX: R31.9 Hematuria, unspecified (principal) | CPT/HCPCS: 76770 ==

== ENCOUNTER → 2025-06-16 12:56 | Outpatient (REF) | payer MEDICARE, SELFPAY | LOC: PAVMRI 12:56 | PROVIDERS: ATTENDING PHYSICIAN Orthopaedic Surgery; FAMILY PHYSICIAN Internal Medicine Geriatric Medicine | DX: M54.16 Radiculopathy, lumbar region (principal) | CPT/HCPCS: 72148 ==

== ENCOUNTER → 2025-06-19 09:14 | Outpatient (REF) | payer MEDICARE, SELFPAY | LOC: RAD 09:14 | PROVIDERS: ATTENDING PHYSICIAN Internal Medicine Gastroenterology; FAMILY PHYSICIAN Internal Medicine Geriatric Medicine; OTHER PHYSICIAN Internal Medicine Transplant Hepatology | DX: K76.0 Fatty (change of) liver, not elsewhere classified (principal) | CPT/HCPCS: 76700 ==

== ENCOUNTER → 2025-07-08 14:29 | Outpatient (REF) | payer MEDICARE, SELFPAY | LOC: WDC 14:29 | PROVIDERS: ATTENDING PHYSICIAN Internal Medicine Geriatric Medicine | DX: Z12.39 Encounter for other screening for malignant neoplasm of breast (principal); Z12.31 Encounter for screening mammogram for malignant neoplasm of breast | CPT/HCPCS: 77063; 77067 ==